=== PATIENT | female | born 1980 | race Caucasian/White ===

== ENCOUNTER 2017-07-12 09:06 | Emergency (ER) | payer OTHER ==
[~2017-07-12 09:06] MED LIST: ALTABAX15 GM TOP; AMIT25 PO; AMOCLA875 PO; AN ANTIBIOTIC; BCP; BUSP15 PO; BUSP5; CEPH500 PO; CITA20 PO; CLIN300 PO; CLON.1 PO; CLON.5; CLON.5 PO; Catapres0.1 MG PO; Cleocin HCl150 MG PO; Cleocin HCl300 MG PO; Crutch1 EACH MISC; DIPATR PO; DOXE50 PO; Desyrel50 MG; Desyrel50 MG PO; Doxycycline Mo100 M1 PO; EPIN.3I IM; GABA100; GABA300 PO; GABA400 PO; HIBICLENS120 ML EXT; HYDACE10B PO; HYDACE5325 PO; HYDMOR2 PO; HYDPAM25 PO; Hydroxyzine HCl50 MG; METH10; METH10 PO; MUPI1NAS; Monodox100 MG PO; NAPR500ERA PO; Naprosyn500 MG PO; OLAN10 PO; OLAN2.5; OLAN2.5 PO; ONDA4 PO; ONDA4ODT; ONDA8 PO; ONDA8ODT MM; OXYACE5T PO; PREN-16 PO; PROM25 PO; PROM25S PR; RXHYDMOR2 PO; RXONDA4ODT MM; SEASONIQUE; SERT50 PO; TRAZ100 PO; TRAZ50 PO; Ultram50 MG PO; Vistaril25 MG PO; Vistaril50 MG PO; ZOLM2.5 PO; Zoloft50 MG PO; Zyprexa10 MG PO; [UNRECOGNIZED DRUG - REMARK]; [UNRECOGNIZED DRUG - REMARK]
[2017-07-12] MEDS ORDERED: METH10 ×2 (16:37)
[2017-07-13] MEDS ORDERED: CLON.1 PO ×2 (05:08)
[2017-07-13] MEDS ORDERED: METH5 PO ×2 (11:25)
== END 2017-07-12 10:10 | disposition left against medical advice (07) ==
LOC: ER 09:06
DX: Z53.21 Procedure and treatment not carried out due to patient leaving prior to being seen by health care provider (principal)

== ENCOUNTER 2017-07-12 10:15 | Observation (INO) | payer OTHER ==
[~2017-07-12] VITALS: Ht 165.1 cm; Wt 80.4 kg
[2017-07-12 10:46] LABS: BASOPHILS ABSOLUTE AUTO 0.02 K/mm3 (0.00-0.23); BASOPHILS PERCENT AUTO 0 % (0-2); EOSINOPHILS PERCENT AUTO 0 % (0-6); Hemoglobin 13.3 g/dL (11.5-16.0); IMMATURE GRAN ABSOLUTE AUTO 0.09 K/mm3 (0.00-0.10); IMMATURE GRAN PERCENT AUTO 1 % (0-1); LYMPHOCYTES ABSOLUTE AUTO 2.12 K/mm3 (0.84-5.20); LYMPHOCYTES PERCENT AUTO 13 % (21-46); MONOCYTES ABSOLUTE AUTO 1.59 K/mm3 (0.16-1.47); MONOCYTES PERCENT AUTO 10 % (4-13); Mean Corpuscular HGB 30.5 pg (26.0-34.0); Mean Corpuscular Volume 87 fL (80-100); Mean Platelet Volume 9.8 fL (9.1-12.4); NEUTROPHILS ABSOLUTE AUTO 12.25 K/mm3 (1.96-9.15); NEUTROPHILS PERCENT AUTO 76 % (41-73); Platelet Count 289 K/mm3 (150-400); RDW Coefficient Variation 12.1 % (11.7-14.2); RDW Standard Deviation 38.9 fL (35.1-46.3); Red Blood Cell Count 4.36 M/mm3 (3.80-5.20); White Blood Cell Count 16.07 K/mm3 (4.00-11.30)
[2017-07-12 11:07] LABS: Albumin, Blood 4.5 g/dL (3.4-5.0); Albumin/Globulin Ratio 0.9 (0.8-1.8); Bilirubin, Total 1.1 mg/dL (0.1-1.0); Bun/Creatinine Ratio 35.2 (12.0-20.0); Calcium, Blood 9.5 mg/dL (8.5-10.1); Creatinine, Blood 1.22 mg/dL (0.40-1.00); Potassium, Blood 3.3 mmol/L (3.5-5.5); Total Protein, Blood 9.5 g/dL (6.4-8.2)
[2017-07-12 11:34] LABS: Creatine Kinase MB 40.5 ng/mL (0.0-3.6); Creatine Kinase MB Index 1.2 (0.0-4.0)
[2017-07-12] MEDS ORDERED: METH10 ×2 (16:37)
[2017-07-13] MEDS ORDERED: CLON.1 PO ×2 (05:08)
[2017-07-13 06:01] LABS: Anion Gap 10 mmol/L (6-16); Blood Urea Nitrogen 32 mg/dL (8-24); Bun/Creatinine Ratio 43.7 (12.0-20.0); CO2, Blood 23 mmol/L (21-32); Calcium, Blood 9.2 mg/dL (8.5-10.1); Chloride, Blood 104 mmol/L (98-108); Creatinine, Blood 0.73 mg/dL (0.40-1.00); Glomerular Filtration Rate >60 (60-); Glucose, Blood 102 mg/dL (70-99); Potassium, Blood 3.1 mmol/L (3.5-5.5); Sodium, Blood 137 mmol/L (136-145)
[2017-07-13 09:04] LABS: Creatine Kinase MB 13.7 ng/mL (0.0-3.6)
[2017-07-13] MEDS ORDERED: METH5 PO ×2 (11:25)
== END 2017-07-13 15:00 | disposition home or self-care (01) ==
LOC: ER 10:15 → MEDS 10:16
PROVIDERS: Emergency Medicine; Internal Medicine
DX: F15.90 Other stimulant use, unspecified, uncomplicated (principal); M62.82 Rhabdomyolysis; G25.5 Other chorea; N17.9 Acute kidney failure, unspecified; E87.6 Hypokalemia; E87.1 Hypo-osmolality and hyponatremia; D72.829 Elevated white blood cell count, unspecified; M54.9 Dorsalgia, unspecified; G89.29 Other chronic pain; F17.210 Nicotine dependence, cigarettes, uncomplicated; Z88.2 Allergy status to sulfonamides; Z79.899 Other long term (current) drug therapy
CPT/HCPCS: 36415; 80048; 80053; 81025; 82550; 82553; 82947; 85025; 96376; G0378; J1200; J1630; J2060; J7120

== ENCOUNTER 2017-08-24 12:58 | Emergency (ER) | payer OTHER ==
[~2017-08-24] VITALS: Ht 165.1 cm; Wt 81.7 kg
[~2017-08-24 12:58] MED LIST changes: +METH5 PO
[2017-08-24] MEDS ORDERED: HYDHCL25 PO (13:14)
[2017-08-24] MEDS ORDERED: Inderal 20 mg T20 MG PO (13:15)
== END 2017-08-24 14:50 | disposition home or self-care (01) ==
LOC: ER 12:58
DX: S61.217A Laceration without foreign body of left little finger without damage to nail, initial encounter (principal); W26.0XXA Contact with knife, initial encounter; Z88.2 Allergy status to sulfonamides; Z79.899 Other long term (current) drug therapy; F17.210 Nicotine dependence, cigarettes, uncomplicated
CPT/HCPCS: 12001; 90471; 90714; 99283

== ENCOUNTER 2017-10-21 13:11 | Emergency (ER) | payer OTHER ==
[~2017-10-21] VITALS: Ht 165.1 cm; Wt 79.4 kg
[~2017-10-21 13:11] MED LIST changes: +HYDHCL25 PO; +Inderal 20 mg T20 MG PO
[2017-10-21 14:37] LABS: Alanine Aminotransfer (ALT/SGP 206 U/L (12-78); Albumin, Blood 4.1 g/dL (3.4-5.0); Albumin/Globulin Ratio 0.9 (0.8-1.8); Alk Phos 124 U/L (50-136); Anion Gap 13 mmol/L (6-16); Aspartate Aminotrans (AST/SGOT 124 U/L (12-37); Bilirubin, Total 0.4 mg/dL (0.1-1.0); Blood Urea Nitrogen 16 mg/dL (8-24); Bun/Creatinine Ratio 25.8 (12.0-20.0); CO2, Blood 22 mmol/L (21-32); Calcium, Blood 9.2 mg/dL (8.5-10.1); Chloride, Blood 107 mmol/L (98-108); Creatinine, Blood 0.62 mg/dL (0.40-1.00); Ethanol (Alcohol), Blood, Med 26 mg/dL; Globulin, Blood 4.4 g/dL (2.2-4.0); Glomerular Filtration Rate >60 (60-); Glucose, Blood 94 mg/dL (70-99); Potassium, Blood 2.8 mmol/L (3.5-5.5); Sodium, Blood 142 mmol/L (136-145); Total Protein, Blood 8.5 g/dL (6.4-8.2)
[2017-10-21 14:42] LABS: BASOPHILS ABSOLUTE AUTO 0.02 K/mm3 (0.00-0.23); BASOPHILS PERCENT AUTO 0 % (0-2); EOSINOPHILS PERCENT AUTO 0 % (0-6); Hematocrit 43.4 % (33.0-51.0); Hemoglobin 14.6 g/dL (11.5-16.0); IMMATURE GRAN ABSOLUTE AUTO 0.06 K/mm3 (0.00-0.10); IMMATURE GRAN PERCENT AUTO 1 % (0-1); LYMPHOCYTES ABSOLUTE AUTO 1.37 K/mm3 (0.84-5.20); LYMPHOCYTES PERCENT AUTO 20 % (21-46); MONOCYTES ABSOLUTE AUTO 0.47 K/mm3 (0.16-1.47); MONOCYTES PERCENT AUTO 7 % (4-13); Mean Corpuscular HGB 29.9 pg (26.0-34.0); Mean Corpuscular HGB Conc 33.6 g/dL (31.5-36.5); Mean Corpuscular Volume 89 fL (80-100); Mean Platelet Volume 9.9 fL (9.1-12.4); NEUTROPHILS ABSOLUTE AUTO 5.08 K/mm3 (1.96-9.15); NEUTROPHILS PERCENT AUTO 73 % (41-73); Platelet Count 249 K/mm3 (150-400); RDW Coefficient Variation 12.4 % (11.7-14.2); RDW Standard Deviation 40.6 fL (35.1-46.3); Red Blood Cell Count 4.88 M/mm3 (3.80-5.20)
[2017-10-21] MEDS ORDERED: POTCHL20ER PO (16:15)
== END 2017-10-21 17:28 | disposition home or self-care (01) ==
LOC: ER 13:11
PROVIDERS: Emergency Medicine
DX: F10.239 Alcohol dependence with withdrawal, unspecified (principal); F11.23 Opioid dependence with withdrawal; E87.6 Hypokalemia; R11.0 Nausea; F17.210 Nicotine dependence, cigarettes, uncomplicated; Z88.2 Allergy status to sulfonamides; Z79.899 Other long term (current) drug therapy; Y90.1 Blood alcohol level of 20-39 mg/100 ml
CPT/HCPCS: 36415; 80053; 85025; 93005; 93010; 96365; 96375; 99284-25; G0480; J2405; J3480; J7120

== ENCOUNTER 2017-10-28 10:01 | Emergency (ER) | payer OTHER ==
[~2017-10-28] VITALS: Ht 165.1 cm; Wt 81.7 kg
[~2017-10-28 10:01] MED LIST changes: +POTCHL20ER PO
[2017-10-28 10:26] LABS: BASOPHILS ABSOLUTE AUTO 0.03 K/mm3 (0.00-0.23); BASOPHILS PERCENT AUTO 1 % (0-2); EOSINOPHILS PERCENT AUTO 2 % (0-6); Hematocrit 40.3 % (33.0-51.0); Hemoglobin 13.4 g/dL (11.5-16.0); IMMATURE GRAN ABSOLUTE AUTO 0.03 K/mm3 (0.00-0.10); IMMATURE GRAN PERCENT AUTO 1 % (0-1); LYMPHOCYTES ABSOLUTE AUTO 1.77 K/mm3 (0.84-5.20); LYMPHOCYTES PERCENT AUTO 30 % (21-46); MONOCYTES PERCENT AUTO 12 % (4-13); Mean Corpuscular HGB 30.4 pg (26.0-34.0); Mean Corpuscular HGB Conc 33.3 g/dL (31.5-36.5); Mean Corpuscular Volume 91 fL (80-100); Mean Platelet Volume 9.7 fL (9.1-12.4); NEUTROPHILS ABSOLUTE AUTO 3.26 K/mm3 (1.96-9.15); NEUTROPHILS PERCENT AUTO 55 % (41-73); Platelet Count 292 K/mm3 (150-400); RDW Coefficient Variation 12.8 % (11.7-14.2); RDW Standard Deviation 42.9 fL (35.1-46.3); Red Blood Cell Count 4.41 M/mm3 (3.80-5.20); White Blood Cell Count 5.89 K/mm3 (4.00-11.30)
[2017-10-28 10:38] LABS: Alanine Aminotransfer (ALT/SGP 164 U/L (12-78); Albumin, Blood 3.8 g/dL (3.4-5.0); Albumin/Globulin Ratio 0.8 (0.8-1.8); Alk Phos 133 U/L (50-136); Anion Gap 10 mmol/L (6-16); Aspartate Aminotrans (AST/SGOT 89 U/L (12-37); Bilirubin, Total 0.2 mg/dL (0.1-1.0); Blood Urea Nitrogen 14 mg/dL (8-24); Bun/Creatinine Ratio 18.7 (12.0-20.0); CO2, Blood 24 mmol/L (21-32); Calcium, Blood 8.9 mg/dL (8.5-10.1); Chloride, Blood 108 mmol/L (98-108); Creatinine, Blood 0.75 mg/dL (0.40-1.00); Globulin, Blood 4.5 g/dL (2.2-4.0); Glomerular Filtration Rate >60 (60-); Glucose, Blood 114 mg/dL (70-99); Potassium, Blood 3.9 mmol/L (3.5-5.5); Sodium, Blood 142 mmol/L (136-145); Total Protein, Blood 8.3 g/dL (6.4-8.2); Troponin I <0.015 ng/mL (0.000-0.040)
[2017-10-29] MEDS ORDERED: METH5 PO (19:16)
[2017-10-29] MEDS ORDERED: OLAN10 PO (19:16)
[2017-10-29] MEDS ORDERED: GABA300 PO (19:17)
[2017-10-29] MEDS ORDERED: HYDPAM50 PO (19:18)
[2017-10-29] MEDS ORDERED: PHENERGAN25 MG PR (20:47)
[2017-10-29] MEDS ORDERED: METO25 PO (22:27)
== END 2017-10-28 11:28 | disposition home or self-care (01) ==
LOC: ER 10:01
PROVIDERS: Emergency Medicine
DX: F41.9 Anxiety disorder, unspecified (principal); Z88.2 Allergy status to sulfonamides; Z87.891 Personal history of nicotine dependence
CPT/HCPCS: 80053; 84484; 85025; 93005; 93010; 96374; 96375; 99283-25; J1200; J1885

== ENCOUNTER 2017-10-29 19:05 | Observation (INO) | payer OTHER ==
[~2017-10-29] VITALS: Ht 165.1 cm; Wt 86.4 kg
[2017-10-29] MEDS ORDERED: METH5 PO (19:16)
[2017-10-29] MEDS ORDERED: OLAN10 PO (19:16)
[2017-10-29] MEDS ORDERED: GABA300 PO (19:17)
[2017-10-29] MEDS ORDERED: HYDPAM50 PO (19:18)
[2017-10-29 19:50] LABS: BASOPHILS ABSOLUTE AUTO 0.01 K/mm3 (0.00-0.23); BASOPHILS PERCENT AUTO 0 % (0-2); EOSINOPHILS ABSOLUTE AUTO 0.01 K/mm3 (0.00-0.68); EOSINOPHILS PERCENT AUTO 0 % (0-6); Hematocrit 41.3 % (33.0-51.0); Hemoglobin 13.9 g/dL (11.5-16.0); IMMATURE GRAN ABSOLUTE AUTO 0.04 K/mm3 (0.00-0.10); IMMATURE GRAN PERCENT AUTO 0 % (0-1); LYMPHOCYTES ABSOLUTE AUTO 1.66 K/mm3 (0.84-5.20); LYMPHOCYTES PERCENT AUTO 16 % (21-46); MONOCYTES ABSOLUTE AUTO 0.54 K/mm3 (0.16-1.47); MONOCYTES PERCENT AUTO 5 % (4-13); Mean Corpuscular HGB 30.5 pg (26.0-34.0); Mean Corpuscular HGB Conc 33.7 g/dL (31.5-36.5); Mean Corpuscular Volume 91 fL (80-100); Mean Platelet Volume 9.6 fL (9.1-12.4); NEUTROPHILS ABSOLUTE AUTO 7.95 K/mm3 (1.96-9.15); NEUTROPHILS PERCENT AUTO 78 % (41-73); Platelet Count 340 K/mm3 (150-400); RDW Coefficient Variation 13.2 % (11.7-14.2); RDW Standard Deviation 43.9 fL (35.1-46.3); Red Blood Cell Count 4.55 M/mm3 (3.80-5.20); White Blood Cell Count 10.21 K/mm3 (4.00-11.30)
[2017-10-29 20:20] LABS: Alanine Aminotransfer (ALT/SGP 162 U/L (12-78); Albumin, Blood 4.4 g/dL (3.4-5.0); Albumin/Globulin Ratio 0.9 (0.8-1.8); Alk Phos 119 U/L (50-136); Anion Gap 9 mmol/L (6-16); Aspartate Aminotrans (AST/SGOT 67 U/L (12-37); Bilirubin, Total 0.4 mg/dL (0.1-1.0); Blood Urea Nitrogen 20 mg/dL (8-24); Bun/Creatinine Ratio 25.9 (12.0-20.0); CO2, Blood 25 mmol/L (21-32); Calcium, Blood 9.6 mg/dL (8.5-10.1); Chloride, Blood 107 mmol/L (98-108); Creatinine, Blood 0.77 mg/dL (0.40-1.00); Globulin, Blood 4.8 g/dL (2.2-4.0); Glomerular Filtration Rate >60 (60-); Glucose, Blood 111 mg/dL (70-99); Potassium, Blood 3.6 mmol/L (3.5-5.5); Sodium, Blood 141 mmol/L (136-145); Total Protein, Blood 9.2 g/dL (6.4-8.2)
[2017-10-29] MEDS ORDERED: PHENERGAN25 MG PR (20:47)
[2017-10-29 21:59] LABS: Source, Urine Clean Catch
[2017-10-29 22:02] LABS: Bilirubin, Urine Neg (Neg); Blood, Urine 1+ (Neg); Glucose Qualitative, Urine Neg (Neg); Ketones, Urine 1+ (Neg); Leukocyte Esterase, Urine 1+ (Neg); Nitrite, Urine Neg (Neg); Protein, Urine 2+ (Neg); Specific Gravity, Urine 1.025 (1.003-1.022); Urobilinogen, Urine NORM (Normal)
[2017-10-29 22:09] LABS: Amorphous Light (0-Heavy); Appearance, Urine Hazy (Clear); Bacteria Mod /hpf; Color, Urine Yellow (P-Yellow); Mucus Light (0-Heavy); Red Blood Cells, Urine Rare /hpf (0-2); Squamous Epithelial Cells Few /hpf (Few); White Blood Cells, Urine 0-2 /hpf (0-5)
[2017-10-29] MEDS ORDERED: METO25 PO (22:27)
[2017-10-29 22:37] LABS: U Amphetamine Screen Not Detected; U Barbituate Screen Not Detected; U Benzodiazapine Screen DETECTED; U Buprenorphine Screen DETECTED; U Cannabinoids Screen Not Detected; U Cocaine Screen Not Detected; U Methadone Screen DETECTED; U Methamphetamine Screen Not Detected; U Opiates Screen Not Detected; U Oxycodone Screen Not Detected; U Phencyclidine Screen Not Detected; U Propoxyphene Screen Not Detected
[2017-10-30 05:31] LABS: BASOPHILS ABSOLUTE AUTO 0.01 K/mm3 (0.00-0.23); BASOPHILS PERCENT AUTO 0 % (0-2); EOSINOPHILS ABSOLUTE AUTO 0.01 K/mm3 (0.00-0.68); EOSINOPHILS PERCENT AUTO 0 % (0-6); Hematocrit 39.3 % (33.0-51.0); IMMATURE GRAN ABSOLUTE AUTO 0.03 K/mm3 (0.00-0.10); IMMATURE GRAN PERCENT AUTO 0 % (0-1); LYMPHOCYTES ABSOLUTE AUTO 1.62 K/mm3 (0.84-5.20); LYMPHOCYTES PERCENT AUTO 16 % (21-46); MONOCYTES PERCENT AUTO 5 % (4-13); Mean Corpuscular HGB 30.4 pg (26.0-34.0); Mean Corpuscular HGB Conc 33.1 g/dL (31.5-36.5); Mean Corpuscular Volume 92 fL (80-100); Mean Platelet Volume 9.8 fL (9.1-12.4); NEUTROPHILS ABSOLUTE AUTO 8.03 K/mm3 (1.96-9.15); NEUTROPHILS PERCENT AUTO 79 % (41-73); Platelet Count 315 K/mm3 (150-400); RDW Coefficient Variation 13.2 % (11.7-14.2); RDW Standard Deviation 44.7 fL (35.1-46.3); Red Blood Cell Count 4.28 M/mm3 (3.80-5.20)
[2017-10-30] MEDS ORDERED: METO50 PO (05:49)
[2017-10-30] MEDS ORDERED: OLAN10 PO (05:51)
[2017-10-30 06:25] LABS: Anion Gap 8 mmol/L (6-16); Blood Urea Nitrogen 24 mg/dL (8-24); Bun/Creatinine Ratio 36.4 (12.0-20.0); CO2, Blood 24 mmol/L (21-32); Calcium, Blood 8.8 mg/dL (8.5-10.1); Chloride, Blood 110 mmol/L (98-108); Creatinine, Blood 0.66 mg/dL (0.40-1.00); Glomerular Filtration Rate >60 (60-); Glucose, Blood 104 mg/dL (70-99); Potassium, Blood 3.6 mmol/L (3.5-5.5); Sodium, Blood 142 mmol/L (136-145)
[2017-10-31 05:24] LABS: Anion Gap 6 mmol/L (6-16); Blood Urea Nitrogen 24 mg/dL (8-24); CO2, Blood 23 mmol/L (21-32); Calcium, Blood 8.2 mg/dL (8.5-10.1); Chloride, Blood 114 mmol/L (98-108); Creatinine, Blood 0.73 mg/dL (0.40-1.00); Glomerular Filtration Rate >60 (60-); Glucose, Blood 93 mg/dL (70-99); Potassium, Blood 3.3 mmol/L (3.5-5.5); Sodium, Blood 143 mmol/L (136-145)
[2017-10-31] MEDS ORDERED: PANT20 PO (12:27)
[2017-10-31] MEDS ORDERED: PROM25 PO (12:28)
[2017-10-31] MEDS ORDERED: Augmentin 875-1 EACH PO (12:31)
== END 2017-10-31 13:41 | disposition home or self-care (01) ==
LOC: ER 19:05 → MEDS 19:06 → ENPENDDIS 10-31 09:56 → MEDS 10-31 13:41
PROVIDERS: Emergency Medicine; Family Medicine; Internal Medicine
DX: R11.2 Nausea with vomiting, unspecified (principal); N39.0 Urinary tract infection, site not specified; R94.5 Abnormal results of liver function studies; G89.29 Other chronic pain; F20.9 Schizophrenia, unspecified; I10 Essential (primary) hypertension; F41.9 Anxiety disorder, unspecified; F11.23 Opioid dependence with withdrawal; F32.9 Major depressive disorder, single episode, unspecified; Z88.2 Allergy status to sulfonamides; Z87.891 Personal history of nicotine dependence; Z79.891 Long term (current) use of opiate analgesic
CPT/HCPCS: 36415; 74018; 74176; 80048; 80053; 81001; 84703; 85025; 87077; 87086; 87186; 96361; 96365; 96366; 96372; 96374; 96375; 96376; 99285-25; C9113; G0378; J0360; J0696; J1200; J1630; J1885; J2405; J2550; J2765; J7030

== ENCOUNTER 2017-11-04 08:59 | Emergency (ER) | payer OTHER ==
[~2017-11-04] VITALS: Ht 165.1 cm; Wt 81.7 kg
[~2017-11-04 08:59] MED LIST changes: +Augmentin 875-1 EACH PO; +HYDPAM50 PO; +METO25 PO; +METO50 PO; +PANT20 PO; +PHENERGAN25 MG PR
[2017-11-04] MEDS ORDERED: Vistaril25 MG PO (09:47)
[2017-11-04] MEDS ORDERED: Triamcinolone A15 G3 TOP (09:47)
== END 2017-11-04 09:49 | disposition home or self-care (01) ==
LOC: ER 08:59
DX: R21 Rash and other nonspecific skin eruption (principal); F41.9 Anxiety disorder, unspecified; F32.9 Major depressive disorder, single episode, unspecified; F20.9 Schizophrenia, unspecified; Z87.891 Personal history of nicotine dependence; Z88.2 Allergy status to sulfonamides; Z79.899 Other long term (current) drug therapy
CPT/HCPCS: 99282

== ENCOUNTER → 2017-11-11 | Outpatient (CLI) | payer OTHER ==
[~2017-11-11] MED LIST changes: +Triamcinolone A15 G3 TOP
== END ==
LOC: LAB SRC 09:53 → LAB SHORT 09:53
DX: Z09 Encounter for follow-up examination after completed treatment for conditions other than malignant neoplasm (principal); Z86.14 Personal history of Methicillin resistant Staphylococcus aureus infection
CPT/HCPCS: 87070; 87205

== ENCOUNTER 2018-07-25 18:26 | Emergency (ER) | payer OTHER ==
[~2018-07-25] VITALS: Ht 165.1 cm; Wt 99.8 kg
[2018-07-25 19:18] LABS: BASOPHILS ABSOLUTE AUTO 0.02 K/mm3 (0.00-0.23); BASOPHILS PERCENT AUTO 0 % (0-2); EOSINOPHILS ABSOLUTE AUTO 0.05 K/mm3 (0.00-0.68); EOSINOPHILS PERCENT AUTO 1 % (0-6); Hematocrit 39.1 % (33.0-51.0); Hemoglobin 12.7 g/dL (11.5-16.0); IMMATURE GRAN ABSOLUTE AUTO 0.04 K/mm3 (0.00-0.10); IMMATURE GRAN PERCENT AUTO 1 % (0-1); LYMPHOCYTES ABSOLUTE AUTO 1.87 K/mm3 (0.84-5.20); LYMPHOCYTES PERCENT AUTO 22 % (21-46); MONOCYTES ABSOLUTE AUTO 0.64 K/mm3 (0.16-1.47); MONOCYTES PERCENT AUTO 8 % (4-13); Mean Corpuscular HGB 30.8 pg (26.0-34.0); Mean Corpuscular HGB Conc 32.5 g/dL (31.5-36.5); Mean Corpuscular Volume 95 fL (80-100); NEUTROPHILS ABSOLUTE AUTO 5.97 K/mm3 (1.96-9.15); NEUTROPHILS PERCENT AUTO 69 % (41-73); Platelet Count 223 K/mm3 (150-400); RDW Standard Deviation 45.8 fL (35.1-46.3); Red Blood Cell Count 4.12 M/mm3 (3.80-5.20); White Blood Cell Count 8.59 K/mm3 (4.00-11.30)
[2018-07-25 19:19] LABS: Alanine Aminotransfer (ALT/SGP 124 U/L (12-78); Albumin, Blood 3.6 g/dL (3.4-5.0); Albumin/Globulin Ratio 0.8 (0.8-1.8); Alk Phos 161 U/L (50-136); Anion Gap 12 mmol/L (6-16); Aspartate Aminotrans (AST/SGOT 51 U/L (12-37); Bilirubin, Total 0.6 mg/dL (0.1-1.0); Blood Urea Nitrogen 9 mg/dL (8-24); Bun/Creatinine Ratio 14.8 (12.0-20.0); CO2, Blood 20 mmol/L (21-32); Calcium, Blood 9.1 mg/dL (8.5-10.1); Chloride, Blood 106 mmol/L (98-108); Creatinine, Blood 0.61 mg/dL (0.40-1.00); Globulin, Blood 4.8 g/dL (2.2-4.0); Glomerular Filtration Rate >60 (60-); Glucose, Blood 104 mg/dL (70-99); Potassium, Blood 3.3 mmol/L (3.5-5.5); Sodium, Blood 138 mmol/L (136-145); Total Protein, Blood 8.4 g/dL (6.4-8.2)
[2018-07-25 19:23] LABS: Source, Urine Clean Catch
[2018-07-25 19:26] LABS: Appearance, Urine Hazy (Clear); Bilirubin, Urine Neg (Neg); Blood, Urine Neg (Neg); Color, Urine Yellow (P-Yellow); Glucose Qualitative, Urine Neg (Neg); Ketones, Urine 1+ (Neg); Leukocyte Esterase, Urine 1+ (Neg); Nitrite, Urine Neg (Neg); Protein, Urine 1+ (Neg); Specific Gravity, Urine 1.015 (1.003-1.022); Urobilinogen, Urine NORM (Normal)
[2018-07-25 19:33] LABS: Bacteria Mod /hpf; Red Blood Cells, Urine 0-2 /hpf (0-2); Squamous Epithelial Cells Mod /hpf (Few)
[2018-07-25] MEDS ORDERED: PROM25 PO (20:05)
[2018-07-25] MEDS ORDERED: CEPH500 PO (20:05)
[2018-07-25] MEDS ORDERED: Acetaminophen-1 EAC1 PO (20:05)
== END 2018-07-25 20:38 | disposition home or self-care (01) ==
LOC: ER 18:26
PROVIDERS: Emergency Medicine
DX: N12 Tubulo-interstitial nephritis, not specified as acute or chronic (principal); K85.90 Acute pancreatitis without necrosis or infection, unspecified; Z88.2 Allergy status to sulfonamides; Z79.899 Other long term (current) drug therapy
CPT/HCPCS: 36415; 80053; 81001; 83690; 85025; 87086; 96374; 96375; 99283-25; J2405; J3010

== ENCOUNTER 2018-08-09 14:04 | Emergency (ER) | payer OTHER ==
[~2018-08-09] VITALS: Ht 165.1 cm; Wt 99.8 kg
[~2018-08-09 14:04] MED LIST changes: +Acetaminophen-1 EAC1 PO
[2018-08-09 14:51] LABS: BASOPHILS ABSOLUTE AUTO 0.04 K/mm3 (0.00-0.23); BASOPHILS PERCENT AUTO 0 % (0-2); EOSINOPHILS PERCENT AUTO 1 % (0-6); Hematocrit 40.7 % (33.0-51.0); Hemoglobin 12.7 g/dL (11.5-16.0); IMMATURE GRAN ABSOLUTE AUTO 0.05 K/mm3 (0.00-0.10); IMMATURE GRAN PERCENT AUTO 1 % (0-1); LYMPHOCYTES ABSOLUTE AUTO 2.01 K/mm3 (0.84-5.20); LYMPHOCYTES PERCENT AUTO 19 % (21-46); MONOCYTES ABSOLUTE AUTO 0.85 K/mm3 (0.16-1.47); MONOCYTES PERCENT AUTO 8 % (4-13); Mean Corpuscular HGB 30.7 pg (26.0-34.0); Mean Corpuscular HGB Conc 31.2 g/dL (31.5-36.5); Mean Corpuscular Volume 98 fL (80-100); Mean Platelet Volume 9.7 fL (9.1-12.4); NEUTROPHILS ABSOLUTE AUTO 7.39 K/mm3 (1.96-9.15); NEUTROPHILS PERCENT AUTO 71 % (41-73); Platelet Count 247 K/mm3 (150-400); RDW Coefficient Variation 13.5 % (11.7-14.2); Red Blood Cell Count 4.14 M/mm3 (3.80-5.20); White Blood Cell Count 10.44 K/mm3 (4.00-11.30)
[2018-08-09 15:11] LABS: Alanine Aminotransfer (ALT/SGP 116 U/L (12-78); Albumin, Blood 3.6 g/dL (3.4-5.0); Albumin/Globulin Ratio 0.9 (0.8-1.8); Alk Phos 141 U/L (50-136); Anion Gap 4 mmol/L (6-16); Aspartate Aminotrans (AST/SGOT 106 U/L (12-37); Bilirubin, Total 0.3 mg/dL (0.1-1.0); Blood Urea Nitrogen 11 mg/dL (8-24); Bun/Creatinine Ratio 18.5 (12.0-20.0); CO2, Blood 27 mmol/L (21-32); Calcium, Blood 9.1 mg/dL (8.5-10.1); Chloride, Blood 106 mmol/L (98-108); Globulin, Blood 4.2 g/dL (2.2-4.0); Glomerular Filtration Rate >60 (60-); Glucose, Blood 93 mg/dL (70-99); Sodium, Blood 137 mmol/L (136-145); Total Protein, Blood 7.8 g/dL (6.4-8.2)
[2018-08-09] MEDS ORDERED: BUPR150T2 PO (15:11)
[2018-08-09] MEDS ORDERED: BRINTELLIX10 MG PO (15:12)
[2018-08-09 15:41] LABS: Creatine Kinase MB 8.5 ng/mL (0.0-3.6)
[2018-08-09 15:44] LABS: Creatine Kinase MB Index 0.5 (0.0-4.0)
[2018-08-09] MEDS ORDERED: XARELTO15 MG PO (16:30)
[2018-08-09] MEDS ORDERED: Percocet 5-3251 EACH PO (16:30)
[2018-08-10] MEDS ORDERED: WARF10 PO (18:02)
== END 2018-08-09 17:02 | disposition home or self-care (01) ==
LOC: ER 14:04
PROVIDERS: Physician Assistant
DX: I82.442 Acute embolism and thrombosis of left tibial vein (principal); I10 Essential (primary) hypertension; F17.210 Nicotine dependence, cigarettes, uncomplicated; Z88.2 Allergy status to sulfonamides; Z79.899 Other long term (current) drug therapy
CPT/HCPCS: 36415; 80053; 82550; 82553; 85025; 93971; 96374; 96375; 99284-25; J1170; J3010

== ENCOUNTER 2018-08-17 21:06 | Emergency (ER) | payer OTHER ==
[~2018-08-17] VITALS: Ht 165.1 cm; Wt 97.5 kg
[~2018-08-17 21:06] MED LIST changes: +BRINTELLIX10 MG PO; +BUPR150T2 PO; +Percocet 5-3251 EACH PO; +WARF10 PO; +XARELTO15 MG PO
[2018-08-17 22:25] LABS: Prothrombin Time Results >90.0 Sec (9.7-11.5)
== END 2018-08-18 00:10 | disposition home or self-care (01) ==
LOC: ER 21:06
PROVIDERS: Physician Assistant
DX: I82.402 Acute embolism and thrombosis of unspecified deep veins of left lower extremity (principal); R79.1 Abnormal coagulation profile; F32.9 Major depressive disorder, single episode, unspecified; F41.9 Anxiety disorder, unspecified; F20.9 Schizophrenia, unspecified; Z88.2 Allergy status to sulfonamides; Z79.899 Other long term (current) drug therapy; F17.210 Nicotine dependence, cigarettes, uncomplicated; F11.20 Opioid dependence, uncomplicated; R73.09 Other abnormal glucose; Z83.3 Family history of diabetes mellitus
CPT/HCPCS: 36415; 80053; 80074; 83036; 85025; 85610; 86480; 86592; 87389; 99283

== ENCOUNTER 2018-08-19 14:48 | Emergency (ER) | payer OTHER ==
[~2018-08-19] VITALS: Ht 165.1 cm; Wt 97.5 kg
[2018-08-19 16:44] LABS: Test Name PT
[2018-08-19 19:04] LABS: Result 51.9 sec
== END 2018-08-19 17:17 | disposition left against medical advice (07) ==
LOC: ER 14:48
PROVIDERS: Physician Assistant
DX: M79.605 Pain in left leg (principal); Z79.899 Other long term (current) drug therapy
CPT/HCPCS: 36415; 85610; 99281

== ENCOUNTER 2018-11-21 16:08 | Emergency (ER) | payer OTHER ==
[~2018-11-21] VITALS: Ht 165.1 cm; Wt 95.2 kg
[2018-11-21] MEDS ORDERED: XARELTO15 MG (16:27)
[2018-11-21] MEDS ORDERED: Cleocin HCl300 MG PO (18:45)
== END 2018-11-21 20:46 | disposition home or self-care (01) ==
LOC: ER 16:08
DX: L03.115 Cellulitis of right lower limb (principal); Z88.2 Allergy status to sulfonamides; Z79.899 Other long term (current) drug therapy; F20.9 Schizophrenia, unspecified; F17.210 Nicotine dependence, cigarettes, uncomplicated
CPT/HCPCS: 36415; 93971; 96365; 96375; 99283-25; J1885; J3010

== ENCOUNTER 2019-01-18 06:29 | Inpatient (IN) | payer OTHER ==
[~2019-01-18] VITALS: Ht 165.1 cm; Wt 99.8 kg
[~2019-01-18 06:29] MED LIST changes: +XARELTO15 MG
[2019-01-18 07:18] LABS: BASOPHILS ABSOLUTE AUTO 0.02 K/mm3 (0.00-0.23); BASOPHILS PERCENT AUTO 0 % (0-2); EOSINOPHILS ABSOLUTE AUTO 0.02 K/mm3 (0.00-0.68); EOSINOPHILS PERCENT AUTO 0 % (0-6); Hematocrit 47.9 % (33.0-51.0); Hemoglobin 16.2 g/dL (11.5-16.0); IMMATURE GRAN ABSOLUTE AUTO 0.05 K/mm3 (0.00-0.10); IMMATURE GRAN PERCENT AUTO 0 % (0-1); LYMPHOCYTES ABSOLUTE AUTO 1.18 K/mm3 (0.84-5.20); LYMPHOCYTES PERCENT AUTO 9 % (21-46); MONOCYTES ABSOLUTE AUTO 0.59 K/mm3 (0.16-1.47); MONOCYTES PERCENT AUTO 5 % (4-13); Mean Corpuscular HGB 30.4 pg (26.0-34.0); Mean Corpuscular HGB Conc 33.8 g/dL (31.5-36.5); Mean Corpuscular Volume 90 fL (80-100); Mean Platelet Volume 10.2 fL (9.1-12.4); NEUTROPHILS ABSOLUTE AUTO 11.26 K/mm3 (1.96-9.15); NEUTROPHILS PERCENT AUTO 86 % (41-73); Platelet Count 255 K/mm3 (150-400); RDW Coefficient Variation 13.1 % (11.7-14.2); RDW Standard Deviation 43.1 fL (35.1-46.3); Red Blood Cell Count 5.33 M/mm3 (3.80-5.20); White Blood Cell Count 13.12 K/mm3 (4.00-11.30)
[2019-01-18 07:35] LABS: Alanine Aminotransfer (ALT/SGP 190 U/L (12-78); Albumin, Blood 3.9 g/dL (3.4-5.0); Albumin/Globulin Ratio 0.8 (0.8-1.8); Alk Phos 145 U/L (50-136); Anion Gap 10 mmol/L (6-16); Aspartate Aminotrans (AST/SGOT 127 U/L (12-37); Bilirubin, Total 0.8 mg/dL (0.1-1.0); Blood Urea Nitrogen 25 mg/dL (8-24); Bun/Creatinine Ratio 38.3 (12.0-20.0); CO2, Blood 22 mmol/L (21-32); Calcium, Blood 9.7 mg/dL (8.5-10.1); Chloride, Blood 104 mmol/L (98-108); Creatinine, Blood 0.65 mg/dL (0.40-1.00); Globulin, Blood 4.6 g/dL (2.2-4.0); Glomerular Filtration Rate >60 (60-); Glucose, Blood 116 mg/dL (70-99); Sodium, Blood 136 mmol/L (136-145); Total Protein, Blood 8.5 g/dL (6.4-8.2)
--- NOTE | 2019-01-18 10:34 | NUR ---
PT TO ROOM VIA STRETCHER INCREASED RR C/O ABDOMINAL PAIN AND DRY HEAVING INTO EMESIS BAG FAMILY ATTENTIVE AND AT BEDSIDE. FREQUENT ROUNDING EXPLAINED TO FAMILY AND BED LOW AND IN LOCKED POSITION, CALL LIGHT WITHIN REACH.
[2019-01-18] MEDS ORDERED: XARELTO20 MG PO (11:50)
--- NOTE | 2019-01-18 18:28 | NUR ---
SHIFT SUMMARY ER ADMIT TODAY FOR PANCREATITIS, ETOH AND HX OF METH USE. FENTYNL GIVEN Q2 SINCE ARRIVAL TO FLOOR. NAUSEA AND VOMITING TODAY. NPO. RECENT METH. OX4, INDEPENDENT IN ROOM.
[2019-01-18 18:34] LABS: U Amphetamine Screen DETECTED; U Barbituate Screen DETECTED; U Buprenorphine Screen DETECTED; U Cannabinoids Screen DETECTED; U Methamphetamine Screen DETECTED; U Opiates Screen DETECTED
[2019-01-18 18:35] LABS: U Benzodiazapine Screen Not Detected; U Cocaine Screen Not Detected; U Methadone Screen Not Detected; U Oxycodone Screen Not Detected; U Phencyclidine Screen Not Detected; U Propoxyphene Screen Not Detected
--- NOTE | 2019-01-19 03:59 | NUR ---
38 year old Female appears older than actual ago admitted with acute pancreatitis, and has acute abd pain and nausea without vomiting. NPO except few ice chips. PT tested positive for multiple drugs on tox screen. Has hep C but drinks 4 to 5 drinks daily reportedly drank on Wednesday. PT has DVT lt LE on RX anticoagulant to treat. CIWA 10 and PT is diaphoretic but has cool clammy skin. Multiple scabs scattered, scars from ??? substance abuse. Muedicated multiple times for CO acute abd with fentanyl 50 mcg with mild helpful effect. NPO on IV fluids. Antiemetics given multiple times. Moans and is confused. Able to use call little and up with SBA to bathroom.
[2019-01-19 04:48] LABS: BASOPHILS ABSOLUTE AUTO 0.03 K/mm3 (0.00-0.23); BASOPHILS PERCENT AUTO 0 % (0-2); EOSINOPHILS ABSOLUTE AUTO 0.05 K/mm3 (0.00-0.68); EOSINOPHILS PERCENT AUTO 0 % (0-6); Hematocrit 49.2 % (33.0-51.0); Hemoglobin 16.2 g/dL (11.5-16.0); IMMATURE GRAN ABSOLUTE AUTO 0.08 K/mm3 (0.00-0.10); IMMATURE GRAN PERCENT AUTO 1 % (0-1); LYMPHOCYTES ABSOLUTE AUTO 1.04 K/mm3 (0.84-5.20); LYMPHOCYTES PERCENT AUTO 7 % (21-46); MONOCYTES PERCENT AUTO 5 % (4-13); Mean Corpuscular HGB 30.7 pg (26.0-34.0); Mean Corpuscular HGB Conc 32.9 g/dL (31.5-36.5); Mean Platelet Volume 10.5 fL (9.1-12.4); NEUTROPHILS ABSOLUTE AUTO 12.97 K/mm3 (1.96-9.15); NEUTROPHILS PERCENT AUTO 87 % (41-73); Platelet Count 232 K/mm3 (150-400); RDW Coefficient Variation 13.4 % (11.7-14.2); Red Blood Cell Count 5.28 M/mm3 (3.80-5.20); White Blood Cell Count 14.87 K/mm3 (4.00-11.30)
[2019-01-19 04:54] LABS: Mean Corpuscular Volume 93 fL (80-100)
[2019-01-19 05:11] LABS: Alanine Aminotransfer (ALT/SGP 128 U/L (12-78); Albumin, Blood 3.1 g/dL (3.4-5.0); Albumin/Globulin Ratio 0.7 (0.8-1.8); Alk Phos 110 U/L (50-136); Anion Gap 5 mmol/L (6-16); Aspartate Aminotrans (AST/SGOT 72 U/L (12-37); Bilirubin, Total 1.1 mg/dL (0.1-1.0); Blood Urea Nitrogen 16 mg/dL (8-24); Bun/Creatinine Ratio 24.8 (12.0-20.0); CO2, Blood 25 mmol/L (21-32); Calcium, Blood 8.6 mg/dL (8.5-10.1); Chloride, Blood 106 mmol/L (98-108); Creatinine, Blood 0.65 mg/dL (0.40-1.00); Globulin, Blood 4.2 g/dL (2.2-4.0); Glomerular Filtration Rate >60 (60-); Glucose, Blood 103 mg/dL (70-99); Potassium, Blood 3.7 mmol/L (3.5-5.5); Sodium, Blood 136 mmol/L (136-145); Total Protein, Blood 7.3 g/dL (6.4-8.2); Triglycerides 52 mg/dL (30-140)
--- NOTE | 2019-01-19 12:00 | NUR ---
Patient is lying in bed and concentrating on breathing through her pain. She answers in simple sentences and yet is able to share a few matters of the heart. Patient tells me that she has Pancreatitis and that realizes that her drinking may have contributed to her medical issues and that it is a warning sign to her. She also shares about her Jew katlyn and that she has good family support. I listen empathically and provide prayer. I will continue to remain available to patient and family.
--- NOTE | 2019-01-19 17:56 | NUR ---
PT HAS BEEN AOX4 AND COOPERATIVE OF CARE. PT HAS DONE FAIR THROUGH MOST OF THE DAY. PT DOES SEEM TO BE MORE ANXIOUS AND RESTLESS TOWARDS END OF SHIFT. PT HAS BEEN A STANDBY TO RESTROOM DUE TO IV POLE. PT CALLS APPROPRIATELY. TREATED FOR PAIN AND NAUSEA PER EMAR. WILL CONTINUE TO MONITOR.
--- NOTE | 2019-01-20 07:14 | NUR ---
PT continues npo for pancreatitis and dewtoxing from polysubstance abuse. She was medicated x 1 for nausea x 2 for abd pain which has improved. She has been up in room to bathroom several times and urine has improved to now lee and she has removed hat from toilet several times. Continues with positive CIWAs 9 or 10 and she calls frequently but has no needs when light answered. Encouraged polysubstance cessation.
[2019-01-20] MEDS ORDERED: Nicoderm Cq1 EAC1 TOP (14:16)
[2019-01-20] MEDS ORDERED: ONDA4ODT MM (14:17)
--- NOTE | 2019-01-20 15:07 | NUR ---
PT DISCHARGED AT 1500. PT HAD ALL PAPERS REVIEWED AND EDUCATIONAL MATERIAL SENT WITH HER. PT HAD STATED HER MOTHER WAS COMMING TO GET HER AND HAD COLLECTED ALL PERSONAL BELONGINGS. IV WAS REMOVED. PT DID NOT NOTIFIY WHEN SHE LEFT HER ROOM. TOOK ALL BELONGINGS. PT WAS AOX4 WHEN SHE LEFT AND SEEMED IN A PLEASANT MOOD.
== END 2019-01-20 15:06 | disposition home or self-care (01) | DRG 440 ==
LOC: ER 06:29 → MEDS 08:53
PROVIDERS: Emergency Medicine; Nurse Practitioner Acute Care; ADMIT Internal Medicine
DX: K85.20 Alcohol induced acute pancreatitis without necrosis or infection (principal); R94.5 Abnormal results of liver function studies; F19.10 Other psychoactive substance abuse, uncomplicated; I10 Essential (primary) hypertension; F32.9 Major depressive disorder, single episode, unspecified; F17.210 Nicotine dependence, cigarettes, uncomplicated; Z86.718 Personal history of other venous thrombosis and embolism; Z88.2 Allergy status to sulfonamides; Z79.01 Long term (current) use of anticoagulants; Z79.899 Other long term (current) drug therapy
CPT/HCPCS: 36415; 74022; 76705; 80053; 81025; 82947; 83690; 83735; 84478; 85025; 90686; 96361; 96374; 96375; 99285-25; J1170; J1885; J2405; J2765; J3010; J3411; J3475; J7030; J7042

== ENCOUNTER → 2021-08-26 | Outpatient (CLI) | payer OTHER ==
[~2021-08-26] MED LIST changes: +Nicoderm Cq1 EAC1 TOP; +ONDA4ODT MM; +XARELTO20 MG PO
== END | disposition home or self-care (01) ==
LOC: LAB SHORT 17:20 → LAB 17:20
DX: L03.113 Cellulitis of right upper limb (principal)
CPT/HCPCS: 87070; 87075; 87077; 87186; 87205